=== PATIENT | male | born 1965 | race Caucasian/White ===

== ENCOUNTER 2016-04-05 08:24 | Emergency (ER) | payer MEDICAID ==
[2016-04-05] MEDS ORDERED: ONDANSETRON 4 MG VIAL ONE (08:47)
[2016-04-05] MEDS ORDERED: DILAUDID 1 MG/ML AMP ONE (08:47)
[2016-04-05] MEDS ORDERED: TRAMADOL 50 MG TAB ONE (20:27)
== END 2016-04-05 10:00 | disposition home or self-care (01) ==
LOC: ER 08:24
DX: N20.1 Calculus of ureter (principal)
CPT/HCPCS: 36415; 74176; 80053; 81001; 83690; 85025; 96374; 96375